=== PATIENT | female | born 1935 | race Two or more races ===

== ENCOUNTER 2025-01-31 15:27 | Emergency (ER) | payer OTHER ==
[~2025-01-31] VITALS: Ht 154.9 cm; Wt 49.0 kg
[2025-01-31] MEDS ORDERED: COZAAR100 MG (16:43)
[2025-01-31] MEDS ORDERED: LEVO-T100 MCG (16:43)
[2025-01-31] MEDS ORDERED: ISOSORBIDE DINI30 MG (16:43)
[2025-01-31] MEDS ORDERED: ARICEPT10 MG (16:43)
[2025-01-31] MEDS ORDERED: MONTELUKAST SODI4 M1 (16:44)
[2025-01-31] MEDS ORDERED: BUSPIRONE HCL7.5 MG (16:44)
[2025-01-31] MEDS ORDERED: SERTRALINE20 MG/1 ML (16:44)
[2025-01-31] MEDS ORDERED: RAYOS1 MG (16:44)
[2025-01-31] MEDS ORDERED: AMLODIPINE-OLM1 EAC2 (16:44)
[2025-01-31] MEDS ORDERED: TETANUS & DIPHTHERIA TOX,ADULT 0.5 ML VIAL IM ONE (17:15)
== END 2025-01-31 18:25 | disposition home or self-care (01) ==
LOC: ER 15:27
DX: I87.2 Venous insufficiency (chronic) (peripheral) (principal); I10 Essential (primary) hypertension; E78.00 Pure hypercholesterolemia, unspecified; J45.909 Unspecified asthma, uncomplicated; E03.8 Other specified hypothyroidism; F03.90 Unspecified dementia, unspecified severity, without behavioral disturbance, psychotic disturbance, mood disturbance, and anxiety; L03.119 Cellulitis of unspecified part of limb
CPT/HCPCS: 90471; 90714; 99282; J1670